=== PATIENT | female | born 1995 | race Caucasian/White ===

== ENCOUNTER 2018-12-10 12:43 | Emergency (ER) | payer OTHER ==
[2018-12-10 13:06] LABS: BILIRUBIN,URINE NEGATIVE (NEGATIVE); CLARITY,URINE CLEAR (CLEAR); GLUCOSE, URINE (UA) NEGATIVE (NEGATIVE); KETONES,URINE (UA) NEGATIVE (NEGATIVE); LEUKOCYTE ESTERASE, URINE NEGATIVE (NEGATIVE); NITRITE,URINE NEGATIVE (NEGATIVE); OCCULT BLOOD,URINE TRACE-INTA (NEGATIVE); PH,URINE 6.5 PH (5.0-7.5); PROTEIN,URINE NEGATIVE (NEGATIVE); UROBILINOGEN,URINE 0.2 (NORMAL) E.U./dL (NORMAL)
[2018-12-10] MEDS ORDERED: LIDOCAINE VISCOUS 2% 15 ML UDC MM STA (13:28)
[2018-12-10] MEDS ORDERED: ONDANSETRON 4 MG/2 ML VIAL IVP STA (13:28)
[2018-12-10] MEDS ORDERED: MAG HYDROX/AL HYDROX/SIMETH 30 ML UDC PO STA (13:28)
[2018-12-10] MEDS ORDERED: SODIUM CHLORIDE 0.9% 1,000 ML IV ONE (13:28)
--- NOTE | 2018-12-10 13:30 | ED Physician Documentation ---
PD HPI ABD PAIN - Stated complaint Stated Complaint: N/U - Chief complaint Chief Complaint: Abd Pain - History obtained from History obtained from: Patient - History of Present Illness Timing - onset: Other (G1, P0 at 16 weeks presents with 4 days of left flank pain radiating to the left lower quadrant. She is had nausea and vomiting as well as poor p.o. intake but normal bowel movements. She started feel weak and dizzy because of it. She is had no problems with this so far. No bleeding, no fluid loss, no pelvic cramping.) Review of Systems Ten Systems: 10 systems reviewed and negative Constitutional: reports: Fatigue. denies: Fever, Chills Cardiac: denies: Chest pain / pressure, Palpitations Respiratory: denies: Dyspnea, Cough : denies: Dysuria, Frequency, Vaginal bleeding PD PAST MEDICAL HISTORY - Past Medical History Past Medical History: No - Present Medications Home Medications: Ambulatory Orders Medication Instructions Recorded Confirmed Ondansetron Odt [Zofran] 4 mg TL Q6H PRN #10 tablet 12/10/18 raNITIdine [Zantac] 150 mg PO DAILY #30 tablet 12/10/18 - Allergies Allergies/Adverse Reactions: Allergies Allergy/AdvReac Type Severity Reaction Status Date / Time No Known Drug Allergies Allergy Verified 12/10/18 12:49 - Social History Does the pt smoke?: No Smoking Status: Never smoker PD ED PE NORMAL - Vitals Vital signs reviewed: Yes - General General: Alert and oriented X 3, No acute distress - Neck Neck: Supple, no meningeal sign, No bony TTP - Cardiac Cardiac: RRR, No murmur - Respiratory Respiratory: No respiratory distress, Clear bilaterally - Abdomen Abdomen: Normal bowel sounds, Soft, Non tender - Female Female : Other (Bedside ultrasound demonstrates single live intrauterine with a heart rate of 154.) - Back Back: No spinal TTP - Neuro Neuro: Alert and oriented X 3, Normal speech Results - Vitals Vitals: Vital Signs - 24 hr 12/10/18 12/10/18 12:47 14:30 Temperature 36.5 C 36.6 C Heart Rate 70 66 Respiratory 16 16 Rate Blood Pressure 119/61 116/69 O2 Saturation 100 100 Oxygen O2 Source Room air - Labs Labs: Laboratory Tests 12/10/18 12/10/18 12/10/18 12:57 13:39 13:39 WBC 12.9 H RBC 3.63 L Hgb 11.9 L Hct 33.8 L MCV 93.1 MCH 32.8 H MCHC 35.2 RDW 12.2 Plt Count 206 MPV 10.1 Neut # (Auto) 10.1 H Lymph # (Auto) 1.8 [place] # (Auto) 0.9 Eos # (Auto) 0.0 Baso # (Auto) 0.0 Absolute Nucleated RBC 0.00 Nucleated RBC % 0.0 Sodium 135 Potassium 3.6 Chloride 105 Carbon Dioxide 20 L Anion Gap 10.0 BUN 12 Creatinine 0.5 Estimated GFR (MDRD) 154 Glucose 83 Calcium 9.5 Total Bilirubin 0.4 AST 17 ALT 13 Alkaline Phosphatase 42 Total Protein 7.5 Albumin 4.2 Globulin 3.3 Albumin/Globulin Ratio 1.3 Lipase 27 Urine Color YELLOW Urine Clarity CLEAR Urine pH 6.5 Ur Specific [place] 1.010 Urine Protein NEGATIVE Urine Glucose (UA) NEGATIVE Urine Ketones NEGATIVE Urine Occult Blood TRACE-INTA Urine Nitrite NEGATIVE Urine Bilirubin NEGATIVE Urine Urobilinogen 0.2 (NORMAL) Ur Leukocyte Esterase NEGATIVE Ur Microscopic Review NOT INDICATED Urine Culture Comments NOT INDICATED PD MEDICAL DECISION MAKING - ED course ED course: 23-year-old woman presents with abdominal pain in the setting of . There is nothing to suggest appendicitis or other surgical emergency. She was feeling better after a GI cocktail, IV fluids and Zofran. Remains nontender on reevaluation. Departure - Departure Disposition: 01 Home, Self Care Clinical Impression: Gastritis, Condition: Good Record reviewed to determine appropriate education?: Yes Instructions: ED Gastritis Prescriptions: Ondansetron Odt [Zofran] 4 mg TL Q6H PRN #10 tablet PRN Reason: Nausea / Vomiting raNITIdine [Zantac] 150 mg PO DAILY #30 tablet Comments: You were seen today for abdominal pain in the setting of , your labs look okay and you were feeling better after a GI cocktail and Zofran. Continue a light diet for the next couple of days. Return for new worsening symptoms, especially for fever or severe pain. [place]. Forms: Activity restrictions
[2018-12-10 13:45] LABS: BASOPHILS % (AUTO) 0.2 %; EOSINOPHILS % (AUTO) 0.3 %; HGB - HEMOGLOBIN 11.9 g/dL (12.0-16.0); LYMPHOCYTES # (AUTO) 1.8 10^3/uL (1.5-3.5); LYMPHOCYTES % (AUTO) 13.7 %; MEAN CORPUSCULAR HEMOGLOBIN 32.8 pg (27.0-31.0); MEAN CORPUSCULAR HGB CONC 35.2 g/dL (32.0-36.0); MEAN CORPUSCULAR VOLUME 93.1 fL (81.0-99.0); MEAN PLATELET VOLUME 10.1 fL (7.9-10.8); MONOCYTES # (AUTO) 0.9 10^3/uL (0.0-1.0); MONOCYTES % (AUTO) 6.8 %; NEUTROPHILS # (AUTO) 10.1 10^3/uL (1.5-6.6); NEUTROPHILS % (AUTO) 78.5 %; PLT - PLATELET COUNT 206 10^3/uL (130-450); RED BLOOD COUNT 3.63 10^6/uL (4.20-5.40); RED CELL DISTRIBUTION WIDTH 12.2 % (12.0-15.0); WHITE BLOOD COUNT 12.9 x10^3/uL (4.8-10.8)
[2018-12-10 14:09] LABS: ALBUMIN 4.2 g/dL (3.2-5.5); ALBUMIN/GLOBULIN RATIO 1.3 (1.0-2.2); BILIRUBIN,TOTAL 0.4 mg/dL (0.2-1.0); CALCIUM 9.5 mg/dL (8.5-10.3); CREATININE 0.5 mg/dL (0.4-1.0); TOTAL PROTEIN 7.5 g/dL (6.7-8.2)
[2018-12-10 14:31] VITALS: BP 116/69
== END 2018-12-10 14:53 | disposition home or self-care (01) ==
LOC: ED 12:43
DX: O99.612 Diseases of the digestive system complicating pregnancy, second trimester (principal); K29.70 Gastritis, unspecified, without bleeding; Z3A.16 16 weeks gestation of pregnancy
CPT/HCPCS: 36415; 80053; 81003; 83690; 85025; 96374; 99283; A9270; 81001; 87086

== ENCOUNTER 2019-02-28 12:42 | Outpatient (CLI) | payer OTHER ==
[2019-02-28 18:51] LABS: HGB - HEMOGLOBIN 11.3 g/dL (12.0-16.0); MEAN CORPUSCULAR HEMOGLOBIN 32.5 pg (27.0-31.0); MEAN CORPUSCULAR HGB CONC 32.7 g/dL (32.0-36.0); MEAN CORPUSCULAR VOLUME 99.4 fL (81.0-99.0); MEAN PLATELET VOLUME 9.9 fL (7.9-10.8); RED BLOOD COUNT 3.48 10^6/uL (4.20-5.40); RED CELL DISTRIBUTION WIDTH 13.1 % (12.0-15.0); WHITE BLOOD COUNT 13.8 x10^3/uL (4.8-10.8)
== END 2019-02-28 23:59 | disposition home or self-care (01) ==
LOC: LAB.N 12:42
PROVIDERS: ATTEND Nurse Practitioner Obstetrics & Gynecology
DX: Z36.89 Encounter for other specified antenatal screening (principal)
CPT/HCPCS: 36415; 82950; 85027; 86850

== ENCOUNTER 2019-04-01 06:41 | Outpatient (CLI) | payer OTHER ==
--- NOTE | 2019-04-01 12:26 | Ultrasound Report ---
Reason: ABD PAIN RUQ, SUPERVISION OF Procedure Date: 04/01/2019 Accession Number: [id number] / [id number] Procedure: US - Abdomen Complete CPT Code: Final Report FULL RESULT: EXAM: ABDOMEN ULTRASOUND EXAM DATE: 04/01/2019 06:51 AM. CLINICAL HISTORY: Abdominal pain right upper quadrant, supervision of . COMPARISON: None. TECHNIQUE: Real-time scanning was performed with static images obtained. FINDINGS: Liver: Liver parenchyma is heterogeneous and mildly hyperechoic. No discrete liver masses or intrahepatic bile duct dilation. However, evaluation for masses is limited secondary to the echogenicity. Right liver measures 15.3 cm. Main portal vein flow: Hepatopetal. Gallbladder: Normal. No stones, wall thickening, or sonographic Amador's sign. Biliary System: Common bile duct measures 1.9 mm. No intrahepatic or extrahepatic ductal dilatation. Pancreas: Portions of the distal body and pancreatic tail are not seen due to bowel gas. Remaining pancreas is otherwise unremarkable. No obvious mass or ductal dilation. Kidneys: Right: 12.4 cm longitudinally. Normal. No contour-deforming mass, stones, or hydronephrosis. Left: 12.2 cm longitudinally. Normal. No contour-deforming mass, stones, or hydronephrosis. Spleen: Length measures 11.2 cm. Normal in size and echotexture. Aorta and Inferior Vena Cava: Normal proximal and distal aorta. Mid aorta is obscured by bowel gas. Normal IVC. Other: Single intrauterine with a heart rate of 136 bpm noted. IMPRESSION: 1. Study limited by bowel gas. 2. Single intrauterine with a heartbeat of 136 bpm is noted. 3. Mildly echogenic probably fatty liver. No mass or intrahepatic bile duct dilation. 4. Normal gallbladder and common bile duct. RADIA
== END 2019-04-01 06:42 | disposition home or self-care (01) ==
LOC: DI 06:41
PROVIDERS: ATTEND Obstetrics & Gynecology
DX: O99.89 Other specified diseases and conditions complicating pregnancy, childbirth and the puerperium (principal); R10.11 Right upper quadrant pain
CPT/HCPCS: 76700

== ENCOUNTER 2019-04-30 08:00 | Outpatient (CLI) | payer OTHER ==
[2019-05-01 21:27] LABS: TRICHOMONAS VAGINALIS DNA NEGATIVE (NEGATIVE)
== END 2019-04-30 23:59 | disposition home or self-care (01) ==
LOC: LAB.R 08:00
PROVIDERS: ATTEND Nurse Practitioner Obstetrics & Gynecology
DX: Z36.85 Encounter for antenatal screening for Streptococcus B (principal)
CPT/HCPCS: 87491; 87591; 87661; 87797

== ENCOUNTER 2019-05-07 08:00 | Outpatient (CLI) | payer OTHER | END 2019-05-07 23:59 | disposition home or self-care (01) | LOC: LAB.R 08:00 | PROVIDERS: ATTEND Nurse Practitioner Obstetrics & Gynecology | DX: R35.0 Frequency of micturition (principal) | CPT/HCPCS: 87086 ==

== ENCOUNTER 2019-05-07 16:14 | Outpatient (CLI) | payer OTHER ==
[2019-05-07 16:33] LABS: HGB - HEMOGLOBIN 12.8 g/dL (12.0-16.0); MEAN CORPUSCULAR HEMOGLOBIN 33.2 pg (27.0-31.0); MEAN CORPUSCULAR HGB CONC 34.8 g/dL (32.0-36.0); MEAN CORPUSCULAR VOLUME 95.3 fL (81.0-99.0); MEAN PLATELET VOLUME 11.2 fL (7.9-10.8); RED BLOOD COUNT 3.86 10^6/uL (4.20-5.40); RED CELL DISTRIBUTION WIDTH 12.1 % (12.0-15.0); WHITE BLOOD COUNT 13.2 x10^3/uL (4.8-10.8)
[2019-05-07 16:49] LABS: ALBUMIN 3.2 g/dL (3.2-5.5); ALBUMIN/GLOBULIN RATIO 0.9 (1.0-2.2); ALKALINE PHOSPHATASE 97 IU/L (42-121); ALT ALANINE AMINOTRANSFERASE < 10 IU/L (10-60); AST ASPARTATE AMINOTRANSFERASE 15 IU/L (10-42); BILIRUBIN,TOTAL 0.5 mg/dL (0.2-1.0); BUN - BLOOD UREA NITROGEN 11 mg/dL (6-20); CALCIUM 8.9 mg/dL (8.5-10.3); CARBON DIOXIDE - CO2 20 mmol/L (21-32); CHLORIDE 107 mmol/L (101-111); CREATININE 0.6 mg/dL (0.4-1.0); GFR - MDRD 125 (>89); GLUCOSE 90 mg/dL (70-100); SODIUM 137 mmol/L (135-145); TOTAL PROTEIN 6.6 g/dL (6.7-8.2); URIC ACID 4.6 mg/dL (2.6-7.2)
== END 2019-05-07 16:15 | disposition home or self-care (01) ==
LOC: LAB 16:14
PROVIDERS: ATTEND Nurse Practitioner Obstetrics & Gynecology
DX: R03.0 Elevated blood-pressure reading, without diagnosis of hypertension (principal)
CPT/HCPCS: 36415; 80053; 84550; 85027

== ENCOUNTER 2019-05-09 07:00 | Outpatient (CLI) | payer OTHER ==
[2019-05-09 11:11] LABS: CREATININE,URINE 107.7 mg/dL
== END 2019-05-09 23:59 | disposition home or self-care (01) ==
LOC: LAB.R 07:00
PROVIDERS: ATTEND Nurse Practitioner Obstetrics & Gynecology
DX: R03.0 Elevated blood-pressure reading, without diagnosis of hypertension (principal)
CPT/HCPCS: 82570; 84156

== ENCOUNTER 2019-05-09 10:00 | Outpatient (CLI) | payer OTHER ==
[2019-05-09 10:24] VITALS: BP 136/88
[2019-05-09 11:09] LABS: RAPID STREP SCREEN Negative (Negative)
--- NOTE | 2019-05-09 12:27 | PROCEDURE REPORT ---
- HPI Diagnosis/Indication for NST: Gestational Hypertension Current EDU 05/24/19 Gestation 37 Weeks and 6 Days 1 Para 0 Vital Signs Temperature 37.2 C 05/09/19 10:23 Heart Rate 85 05/09/19 10:23 Respiratory Rate 18 05/09/19 10:23 Blood Pressure 136/88 H 05/09/19 10:23 O2 Saturation 100 05/09/19 10:23 Temperature 37.2 C 05/09/19 10:23 Heart Rate 85 05/09/19 10:23 Respiratory Rate 18 05/09/19 10:23 Blood Pressure 136/88 H 05/09/19 10:23 O2 Saturation 100 05/09/19 10:23 - NST Procedure NST Procedure Start Date 05/09/19 Start Time 10:10 Stop Time 11:10 Vibroacoustic Stimulation Used No Patient States Movement Yes - Results and Plan Plan: Henri presents to [facility] as directed from [facility] for NST secondary to diagnosis of gestational HTN. Her labs were WNL and r/o preeclampsia. She denies [place], visual disturbances, RUQ or epigastric pain. She denies vaginal bleeding or leakage of fluid. Denies contractions. Reports +FM. In addition she reports new onset cough and feeling like she is swallowing razor blades. She denies fever, body aches, or chills. NST performed 05/09/2019 NST read 05/09/2019 NST reactive. Baseline 140s, moderate variability, + accels, no decels Rapid strep - neg Rapid flu - neg PIH labs WNL and r/o preeclampsia Medical IOL secondary to gestational HTN scheduled 05/10/2019 @ 0800. Consent form signed and [facility] notified. Reviewed warning s/sx and when to present urgently with pt whom verbalized understanding and agrees to above plan. Pt released home with precautions. FINAL DIAGNOSIS: Gestational hypertension @ 37.6wks gestation
== END 2019-05-09 11:20 | disposition home or self-care (01) ==
LOC: WFO 10:00 → FBP 10:04 → WFO 11:20
PROVIDERS: ATTEND Nurse Practitioner Obstetrics & Gynecology
DX: O13.3 Gestational [pregnancy-induced] hypertension without significant proteinuria, third trimester (principal); Z3A.37 37 weeks gestation of pregnancy
CPT/HCPCS: 59025; 87070; 87275; 87276; 87430

== ENCOUNTER 2019-05-10 07:51 | Outpatient (CLI) | payer OTHER ==
[2019-05-10 08:31] VITALS: BP 138/90
--- NOTE | 2019-05-10 08:42 | Labor Flowsheet ---
Labor Flowsheet Datetime Report Generated by CPN: 05/10/2019 08:42 Datetime: 05/10/2019 08:14 VITAL SIGNS NBP Sys/Ariadna/Mean (mmHg): 124 : 65 : 78 Pulse: 88 Datetime: 05/09/2019 10:23 SpO2 (%): 100
--- NOTE | 2019-05-10 09:11 | PROCEDURE REPORT ---
- HPI Diagnosis/Indication for NST: Gestational Hypertension Current EDU 05/24/19 Gestation 38 Weeks and 0 Days 1 Para 0 Vital Signs Blood Pressure 138/90 H 05/10/19 08:00 Temperature 36.8 C 05/10/19 08:15 Heart Rate 88 05/10/19 08:15 Respiratory Rate 18 05/10/19 08:15 Blood Pressure 124/65 05/10/19 08:15 O2 Saturation - NST Procedure NST Procedure Start Date 05/10/19 Start Time 07:58 Stop Time 08:17 Vibroacoustic Stimulation Used No Patient States Movement Yes - Results and Plan Findings/Impression: NST reactive. Baseline 140s, moderate variability, + accels, no decels Plan: Henri presents to [facility] for scheduled medical induction of labor secondary to gestational hypertension. Due to unit staffing concerns her induction will be delayed pending a reactive NST and no signs of progressively worsening gestational hypertension. She denies vaginal bleeding or leakage of fluid and reports +FM. She denies headache, visual disturbances, RUQ or epigastric pain. Her edema has remained consistent to LE's bilterally. She presents with her whom is supportive. They are slightly disappointed about having to go home and return tomorrow morning for induction but also express their understanding. NST performed 05/10/2019 NST read 05/10/2019 NST reactive. Baseline 140s, moderate variability, + accels, no decels BP 134/92 and then 126/64 Pt released home with precautions. Will call when there is adequate staff available. Reviewed warning s/sx and when to present urgently. Pt and partner both verbalized understanding and agree to above plan. They deny further questions or concerns at this time.
== END 2019-05-10 08:40 | disposition home or self-care (01) ==
LOC: WFO 07:51 → FBP 07:53 → WFO 08:40
PROVIDERS: ATTEND Nurse Practitioner Obstetrics & Gynecology
DX: Z53.9 Procedure and treatment not carried out, unspecified reason (principal)
CPT/HCPCS: 59025; 99213

== ENCOUNTER 2019-05-11 13:54 | Inpatient (IN) | payer OTHER ==
[2019-05-11] MEDS ORDERED: METHYLERGONOVINE 0.2 MG/ML VIAL IM PRN (14:01)
[2019-05-11] MEDS ORDERED: OXYTOCIN/SODIUM CHLORIDE 500 ML IV PRN (14:01)
[2019-05-11] MEDS ORDERED: ONDANSETRON ODT 4 MG TABLET TL PRN (14:01)
[2019-05-11] MEDS ORDERED: CARBOPROST TROMETHAMINE 250 MCG/ML AMP IM PRN (14:01)
[2019-05-11] MEDS ORDERED: SODIUM CHLORIDE FLUSH 0.9% 10 ML SYRINGE IVP PRN (14:01)
[2019-05-11] MEDS ORDERED: miSOPROStoL 200 MCG TABLET PR ONE (14:01)
[2019-05-11] MEDS ORDERED: ONDANSETRON 4 MG/2 ML VIAL IVP PRN (14:01)
[2019-05-11] MEDS ORDERED: miSOPROStoL 200 MCG TABLET PR PRN (14:01)
[2019-05-11 14:34] LABS: ALBUMIN 3.6 g/dL (3.2-5.5); ALBUMIN/GLOBULIN RATIO 1.1 (1.0-2.2); BASOPHILS % (AUTO) 0.3 %; BILIRUBIN,TOTAL 0.7 mg/dL (0.2-1.0); CALCIUM 9.1 mg/dL (8.5-10.3); CREATININE 0.7 mg/dL (0.4-1.0); EOSINOPHILS # (AUTO) 0.1 10^3/uL (0.0-0.7); EOSINOPHILS % (AUTO) 0.8 %; HGB - HEMOGLOBIN 12.8 g/dL (12.0-16.0); LYMPHOCYTES # (AUTO) 2.1 10^3/uL (1.5-3.5); LYMPHOCYTES % (AUTO) 14.3 %; MEAN CORPUSCULAR HEMOGLOBIN 31.5 pg (27.0-31.0); MEAN CORPUSCULAR HGB CONC 33.2 g/dL (32.0-36.0); MEAN CORPUSCULAR VOLUME 95.1 fL (81.0-99.0); MEAN PLATELET VOLUME 11.5 fL (7.9-10.8); MONOCYTES # (AUTO) 1.1 10^3/uL (0.0-1.0); MONOCYTES % (AUTO) 7.6 %; NEUTROPHILS # (AUTO) 11.3 10^3/uL (1.5-6.6); NEUTROPHILS % (AUTO) 75.7 %; PLT - PLATELET COUNT 224 10^3/uL (130-450); RED BLOOD COUNT 4.06 10^6/uL (4.20-5.40); TOTAL PROTEIN 6.9 g/dL (6.7-8.2); WHITE BLOOD COUNT 14.9 x10^3/uL (4.8-10.8)
[2019-05-11] MEDS ORDERED: TERBUTALINE 1 MG/ML VIAL SUBQ SCH (15:00)
[2019-05-11] MEDS: miSOPROStoL 100 MCG TABLET BC SCH ×2 (15:04→20:15)
[2019-05-11 15:54] LABS: CREATININE,URINE 141.8 mg/dL; PROTEIN/CREATININE RATIO,URINE 0.2 (<=0.2)
[2019-05-11] MEDS ORDERED: SODIUM CHLORIDE FLUSH 0.9% 10 ML SYRINGE IVP SCH (17:00)
--- NOTE | 2019-05-11 19:13 | HISTORY & PHYSICAL EXAMINATION ---
Admit History - Visit Reason Visit Reason: Other - : 1 Parity: 0 Premature: 0 Ectopic: 0 : 0 Care: positive: [facility] Risk/History: positive: None Complications This : positive: None Smoking Status: Never smoker - Mother's Labs Mother's Blood Type: positive: O Mother's RH: positive: Positive GBS: positive: Group B Step Negative Rubella Status: positive: Immune Meds/Allgy - Home Medications Home Medications: Ambulatory Orders Medication Instructions Recorded Confirmed Ondansetron Odt [Zofran] 4 mg TL Q6H PRN #10 tablet 12/10/18 raNITIdine [Zantac] 150 mg PO DAILY #30 tablet 12/10/18 - Allergies Allergies/Adverse Reactions: Allergies Allergy/AdvReac Type Severity Reaction Status Date / Time No Known Drug Allergies Allergy Verified 12/10/18 12:49 Review of Systems - Constitutional Constitutional: denies: Fatigue, Fever, Chills, Malaise - Eyes Eyes: denies: Blurred vision, Spots in vision, Dipolpia - Cardiovascular Cariovascular: denies: Irregular heart rate, Chest pain, Edema - Respiratory Respiratory: denies: SOB at rest - Gastrointestinal Gastrointestinal: denies: Change in bowel habits - Integumentary Integumentary: denies: Rash, Pruritis - Neurological Neurological: denies: Headache Physical - Abdominal Exam Vital Signs: Temp Pulse Resp BP Pulse Ox 36.8 C 83 18 126/64 100 05/11/19 17:00 05/11/19 17:00 05/11/19 17:00 05/11/19 17:00 05/11/19 17:00 Contraction Frequency (min/apart): 2-5 Contraction Intensity: positive: Moderate Uterine Resting Tone: positive: Soft - Monitoring Heart Rate Baseline: 150 Strip Review: positive: Category I - Presentation Presentation: positive: Vertex - Vaginal Exam Membranes: positive: Membranes intact Dilation (in cm): fingertip Effacement (%): 50 Station: positive: -3 Cervical Position: positive: Posterior - Speculum Exam Speculum Exam Performed: positive: No Plan for Labor - Plan For Labor I expect patient to be DC'd or transferred within 96 hours.: Yes Plan for Labor: HPI: This 23yo @ 38.1wks gestation by LMP c/w 10.3wk U/S presents to [facility] for medical induction of labor secondary to gestational hypertension. She denies vaginal bleeding or leakage of fluid and reports +FM. She denies [place], visual disturbances, RUQ or epigastric pain. Her edema to LE's bilaterally has remained consistent over the past 2 weeks. She has been a patient of [facility] since 23wks gestation at which time she was a transfer of care from [facility]. She has received consistent care through the duration of her . Her has remained uncomplicated with the exception of her recent diagnosis of gestational hypertension. Her BPs have remained only mildly elevated and she has never had associated symptoms to suggest preeclampsia. Her PIH labs have remained WNL and her 24hr protein was WNL. SVE fingertip/50/-3, posterior, medium, vertex. She will be placed on observation status on [facility] for preinduction cervical ripening. Dating criteria: LMP 08/17/2018 Initial U/S: 10.3wk U/S c/w LMP dating Serial exams - agree OB Hx: G1: Current Medications: Sertraline 50mg; ranitidine 150mg; PNV; zofran PRN Allergies: NKDA PMHx: Surgical Hx: Social Hx: Family Hx: labs: O pos/Rubella immune Gentic testing: Serum integrated screen - neg; SMA neg; CF neg Glucola 98 GBS & GC/CT- NEG x 3 Ultrasounds: Initial U/S: 10.3wk U/S c/w LMP dating. FAS 01/03/2019 WNL, 3VC. Antterior placenta, no previa. Size c/w dating - cord insertion site not well seen. 01/07/19 f/u for cord insertion - 3VC, normal, anterior cord insertion; VIVEK WNL Immunizations: TDAP complete Physical Exam: Normocephalic, atraumatic Heart RRR w/o M/G/R Lungs CTAB Abdomen gravid, soft, nontender EFW 3000g Contractions palpate moderate every 2-5 minutes with soft resting tone FHR baseline 150s, moderate variability, + accels, no decels SVE fingertip/50/-3, posterior, medium, vertex. Membranes intact Bilateral LE's no edema. DTRs 2+, no clonus Mood is good supportive at the bedside Admit labs: Protein/creatinine ratio 0.2 AST-32; ALT-32 Uric acid 4.6 Assessment: 23yo @ 38.1wks gestation Gestational HTN - mild GBS neg Plan: Place in observation status until active labor, SROM, epidural placement, or initiation of pitocin Continuous monitoring 50mcg BC misoprostol q 4 hours for preinduction cervical ripening Jacuzzi PRN. Nitrous oxide PRN. Anticipate
[2019-05-12] MEDS: ACETAMINOPHEN 325 MG TABLET PO PRN ×3 (00:29→21:28)
[2019-05-12] MEDS ORDERED: SODIUM CHLORIDE 0.65% NASAL SPRAY NAS PRN (01:01)
[2019-05-12] MEDS: miSOPROStoL 100 MCG TABLET BC SCH ×2 (03:18→09:38)
--- NOTE | 2019-05-12 13:27 | PROVIDER PROGRESS NOTE ---
Subjective - Prog Note Date Prog Note Date: 05/12/19 Prog Note Time: 11:45 - Subjective Subjective: Patient has had 4 doses of misoprostol; last dose at 9:30 am. Feels contractions when sitting upright. No LOF or VB. Generally comfortable. No PIH symptoms. Objective - Vital Signs/Intake & Output Reviewed Vital Signs: Yes Intake & Output: Intake & Output 05/09/19 05/10/19 05/11/19 05/12/19 23:59 23:59 23:59 23:59 Output Total 1150 Balance -1150 - Objective General Appearance: positive: No acute distress Respiratory: positive: Chest non-tender Cardiovascular: positive: Other (RR) Abdomen: positive: Non-tender, Other (gravid, soft) Extremities: positive: Non-tender, No pedal edema Neurologic/Psychiatric: positive: Oriented x3 - Lab Results Fish Bones: 05/11/19 14:20 05/11/19 14:20 Other Labs: Lab Results x24hrs 05/11/19 05/11/19 05/11/19 Range/Units 15:25 14:20 14:20 WBC 14.9 H (4.8-10.8) x10^3/uL RBC 4.06 L (4.20-5.40) 10^6/uL Hgb 12.8 (12.0-16.0) g/dL Hct 38.6 (37.0-47.0) % MCV 95.1 (81.0-99.0) fL MCH 31.5 H (27.0-31.0) pg MCHC 33.2 (32.0-36.0) g/dL RDW 12.0 (12.0-15.0) % Plt Count 224 (130-450) 10^3/uL MPV 11.5 H (7.9-10.8) fL Neut # (Auto) 11.3 H (1.5-6.6) 10^3/uL Lymph # (Auto) 2.1 (1.5-3.5) 10^3/uL [place] # (Auto) 1.1 H (0.0-1.0) 10^3/uL Eos # (Auto) 0.1 (0.0-0.7) 10^3/uL Baso # (Auto) 0.0 (0.0-0.1) 10^3/uL Absolute Nucleated RBC 0.00 x10^3/uL Nucleated RBC % 0.0 /100WBC Sodium 136 (135-145) mmol/L Potassium 4.8 (3.5-5.0) mmol/L Chloride 100 L (101-111) mmol/L Carbon Dioxide 27 (21-32) mmol/L Anion Gap 9.0 (6-13) BUN 18 (6-20) mg/dL Creatinine 0.7 (0.4-1.0) mg/dL Estimated GFR (MDRD) 105 (>89) Glucose 93 (70-100) mg/dL Calcium 9.1 (8.5-10.3) mg/dL Total Bilirubin 0.7 (0.2-1.0) mg/dL AST 32 (10-42) IU/L ALT 32 (10-60) IU/L Alkaline Phosphatase 63 (42-121) IU/L Total Protein 6.9 (6.7-8.2) g/dL Albumin 3.6 (3.2-5.5) g/dL Globulin 3.3 (2.1-4.2) g/dL Albumin/Globulin Ratio 1.1 (1.0-2.2) Urine Creatinine 141.8 mg/dL Ur Total Protein Timed 23 mg/dL Protein/Creatinin Ratio 0.2 (<=0.2) Assessment/Plan - Problem List (1) Impression: 23 yo at 38w2d here for IOL for GHTN undergoing cervical ripening with misoprostol -Check SVE after next dose -Consider Morin bulb placement Cat I tracing No severe range BPs or PIH symptoms, labs wnl Cont inpatient care Anticipate SVE
[2019-05-12] MEDS: LACTATED RINGERS 1,000 ML IV SCH ×2 (14:38→16:57)
--- NOTE | 2019-05-12 18:36 | PROVIDER PROGRESS NOTE ---
Labor Progress Note - Uterine Monitoring Contraction Frequency (min/apart): Q3-6; irreg Contraction Intensity: positive: Mild to moderate Uterine Resting Tone: positive: Soft - Monitoring Monitor Mode: positive: External ultrasound Heart Rate Baseline: 145 Heart Rate Variability: positive: Moderate (6-25 bmp) Accelerations: positive: Present, 15x15 Decelerations: positive: None Strip Review: positive: Category I - Labor Progress Note Labor Progress Note/Additional Text: At about 16:30, patient had been fingertip with a category II At about 16:30, underwent SROM Unclear clear vs light meconium Runs of active contractions interspersed with runs of spaced contractions Given period of Cat II tracing after miso, will manage expectantly to allow contraction pattern to emerge If continues to have spaced contractions, will start low dose pitocin Current Cat I tracing
[2019-05-12] MEDS: fentaNYL 100 MCG/2 ML VIAL IVP PRN ×2 (21:56→23:55)
[2019-05-12] MEDS ORDERED: OXYTOCIN/SODIUM CHLORIDE 500 ML IV SCH (22:00)
[2019-05-13] MEDS ORDERED: LIDOCAINE-MPF 1% 30 ML VIAL ONE ×2 (01:02→08:16)
[2019-05-13] MEDS ORDERED: ROPIVACAINE 0.2% 200 MG/100 ML BAG EP ONE (01:02)
[2019-05-13] MEDS: fentaNYL 100 MCG/2 ML VIAL IVP PRN (01:11)
[2019-05-13] MEDS: LACTATED RINGERS 1,000 ML IV SCH (01:25)
[2019-05-13] MEDS ORDERED: LACTATED RINGERS 1,000 ML IV ONE (01:28)
[2019-05-13] MEDS ORDERED: NALOXONE 0.4 MG/ML VIAL IVP PRN (01:50)
[2019-05-13] MEDS ORDERED: ONDANSETRON 4 MG/2 ML VIAL IVP PRN (01:50)
[2019-05-13] MEDS ORDERED: ROPIVACAINE 0.2% 200 MG/100 ML BAG EP PRN (01:50)
[2019-05-13] MEDS ORDERED: diphenhydrAMINE INJ 50 MG/ML VIAL IVP PRN (01:50)
[2019-05-13] MEDS ORDERED: NALBUPHINE 10 MG/ML AMP IVP PRN (01:50)
[2019-05-13] MEDS ORDERED: METOCLOPRAMIDE 10 MG/2 ML VIAL IVP PRN (01:50)
[2019-05-13] MEDS ORDERED: LACTATED RINGERS 500 ML IV ONE (01:50)
[2019-05-13] MEDS ORDERED: ePHEDrine 50 MG/ML VIAL IVP PRN (01:50)
--- NOTE | 2019-05-13 01:50 | ANESTHESIA ---
Pre-Anesthesia VS, & Labs - Diagnosis active labor - Procedure SRINIVASA Vital Signs: Temp Pulse Resp BP Pulse Ox 36.7 C 83 18 126/64 100 05/12/19 21:00 05/11/19 17:00 05/11/19 17:00 05/11/19 17:00 05/11/19 17:00 Height 5 ft 3 in Weight (kg) 90.718 kg Body Mass Index 27.6 - Is Patient ?: Yes - Lab Results Current Lab Results: Laboratory Tests 05/11/19 14:20: Sodium 136, Potassium 4.8, Chloride 100 L, Carbon Dioxide 27, Anion Gap 9.0, BUN 18, Creatinine 0.7, Estimated GFR (MDRD) 105, Glucose 93, Calcium 9.1, Total Bilirubin 0.7, AST 32, ALT 32, Alkaline Phosphatase 63, Total Protein 6.9, Albumin 3.6, Globulin 3.3, Albumin/Globulin Ratio 1.1 05/11/19 14:20: WBC 14.9 H, RBC 4.06 L, Hgb 12.8, Hct 38.6, MCV 95.1, MCH 31.5 H , MCHC 33.2, RDW 12.0, Plt Count 224, MPV 11.5 H, Neut # (Auto) 11.3 H, Lymph # (Auto) 2.1, [place] # (Auto) 1.1 H, Eos # (Auto) 0.1, Baso # (Auto) 0.0, Absolute Nucleated RBC 0.00, Nucleated RBC % 0.0 Fish Bones: 05/11/19 14:20 05/11/19 14:20 Home Medications and Allergies Active Medications Acetaminophen (Tylenol) 650 mg PO Q6H PRN PRN Reason: Pain or Fever Last Admin: 05/12/19 21:28 Dose: 650 mg Fentanyl (Fentanyl) 50 mcg IVP Q1H PRN PRN Reason: PAIN Last Admin: 05/13/19 01:11 Dose: 50 mcg Lactated Ringer's (Lr) 1,000 mls @ 100 mls/hr IV .Q10H IGNACIO Last Admin: 05/13/19 01:25 Dose: 100 mls/hr Oxytocin/Sodium Chloride (Pitocin/Sodium Chloride) 500 mls @ 999 mls/hr IV PRN PRN; Protocol PRN Reason: POST- HEMORR PREVENTION Oxytocin/Sodium Chloride (Pitocin/Sodium Chloride) 500 mls @ 1 mls/hr IV TITR IGNACIO; Protocol Last Titration: 05/12/19 22:27 Dose: 2 milliunit/min, 2 mls/hr Methylergonovine Maleate (Methergine Inj) 0.2 mg IM Q4H PRN PRN Reason: Post- Hemorrhage Misoprostol (Cytotec) 50 mcg BC Q4HR IGNACIO Last Admin: 05/12/19 09:38 Dose: 50 mcg Ondansetron HCl (Zofran Inj) 4 mg IVP Q4HR PRN PRN Reason: Nausea / Vomiting Ondansetron HCl (Zofran Odt) 4 mg TL Q4HR PRN PRN Reason: Nausea / Vomiting Sodium Chloride (Normal Saline Flush 0.9%) 10 ml IVP 0100,0900,1700 [facility] Last Admin: 05/11/19 20:16 Dose: 10 ml Sodium Chloride (Normal Saline Flush 0.9%) 10 ml IVP PRN PRN PRN Reason: NEEDED PER PROVIDER ORDERS Sodium Chloride ([place]) 2 sprays CHANDA Q4HR PRN PRN Reason: Nasal Congestion Last Admin: 05/12/19 01:18 Dose: 2 sprays Terbutaline Sulfate (Terbutaline) 0.25 mg SUBQ Q1H [facility] Allergies/Adverse Reactions: Allergies Allergy/AdvReac Type Severity Reaction Status Date / Time No Known Drug Allergies Allergy Verified 12/10/18 12:49 Anes History & Medical History - Anesthetic History Anesthesia Complications: reports: No previous complications Family history of Anesthesia Complications: Denies Family history of Malignant Hyperthermia: Denies - Medical History Cardiovascular: reports: None Pulmonary: reports: None Gastrointestinal: reports: None Urinary: reports: None Neuro: reports: None Musculoskeletal: reports: None Endocrine/Autoimmune: reports: None Blood Disorders: reports: None Skin: reports: None Smoking Status: Never smoker Psychosocial: reports: No issues indicated - Obstetrical History : 1 Parity: 0 Events: positive: None Complications: positive: None Exam General: Alert, Oriented x3, Cooperative, No acute distress Dental: WNL Mouth Openin Fingerbreadth Mallampati classification: IV Thyromental Distance: 4-6 cm Respiratory: Lungs clear, Normal breath sounds, No respiratory distress, No accessory muscle use Cardiovascular: Regular rate, Normal S1, Normal S2, No murmurs Abdomen: Normal bowel sounds, Soft, No tenderness, No hepatospenomegaly, No masses Extremities: No clubbing, No cyanosis, No edema, Normal pulses, No tenderness /swelling Neurological: Normal gait, Normal speech, Strength at 5/5 X4 ext, Normal tone, Sensation intact, Cranial nerves 3-12 NL, Reflexes 2+ Mental/Cognitive Status: Alert/Oriented X3, Normal for patient Cognitive Status: Within normal limits Plan Anesthesia Type: Epidural Consent for Procedure(s) Verified and Reviewed: Yes Code Status: Attempt Resuscitation ASA classification: 2-Mild systemic disease Is this case an emergency?: No
--- NOTE | 2019-05-13 02:04 | PROCEDURE REPORT ---
Hospitalist Procedure Note - Procedure Note Procedure Note: epidural requested for the patient. In room at about 0100. Patient is teary and is having contraction pains. Informed consent obtained and risks and benefits of the procedure explained to the patient. Made her aware of the Importance of positioning and not moving during the procedure. Sitting position and she continues to move with each contraction. RN administered IV fentanyl 50mcg upon my request. This helped patient a little bit with her contractions and then I was able to proceed. Chlorohexidine prep x3. sterile drape to her back. Lidocain 1%3ml local before needle insertion. Catheter in at about 13-14 cm. Test dose negative. First bolus of lidocain 1% 5ml at 0135. pump started at about 0143. Administered 15mcg of intrathecal fentanyl. Patient tolerated the procedure well
[2019-05-13] MEDS ORDERED: miSOPROStoL 200 MCG TABLET ONE (08:16)
--- NOTE | 2019-05-13 09:00 | PROVIDER PROGRESS NOTE ---
Subjective - Prog Note Date Prog Note Date: 05/13/19 Prog Note Time: 06:00 - Subjective Subjective: Patient was noted to be 8 cm at about 3-4 am. Developed some decels about 2 hours after that. Pitocin had been paused by RN due to decels. Checked about an hour later and was complete. Epidural in place. Meconium stained fluid. Objective - Vital Signs/Intake & Output Vital Signs: Vital Signs x48h Temp Pulse Resp BP 05/13/19 05:00 99 F 85 16 120/62 05/13/19 03:00 74 16 116/56 L 05/13/19 01:50 98.6 F 93 16 152/100 H 05/13/19 01:00 98.6 F 93 16 152/100 H Intake & Output: Intake & Output 05/10/19 05/11/19 05/12/19 05/13/19 23:59 23:59 23:59 23:59 Intake Total 232.767 846.667 Output Total 1150 800 Balance -917.233 46.667 - Objective General Appearance: positive: No acute distress Respiratory: positive: Chest non-tender, No respiratory distress Cardiovascular: positive: Regular rate & rhythm Abdomen: positive: Non-tender Skin: positive: Color nml Extremities: positive: Non-tender Neurologic/Psychiatric: positive: Oriented x3 - Lab Results Fish Bones: 05/11/19 14:20 05/11/19 14:20 - Other Results/Comments Other Results/Comments: SVE C/C/0 station Cat I tracing Assessment/Plan - Problem List (1) Impression: Labored down for 1 hours Reinitiated pitocin position OP, manual rotation attempted Started pushing Will need RT for delivery given meconium Anticiapte
[2019-05-13] MEDS ORDERED: LIDOCAINE-MPF 1% 30 ML VIAL ID PRN (10:09)
[2019-05-13] MEDS ORDERED: WITCH HAZEL/GLYCERIN 1 PAD TOP PRN (10:19)
[2019-05-13] MEDS ORDERED: HYDROCORTISONE 1% CREAM 28 GM TUBE PR PRN (10:19)
[2019-05-13] MEDS ORDERED: OXYTOCIN/SODIUM CHLORIDE 500 ML IV PRN (10:21)
--- NOTE | 2019-05-13 10:25 | PROVIDER PROGRESS NOTE ---
Subjective - Subjective Subjective: Presented to pt bedside after receiving report from electronic parts designer physician. Pt was noted to be c/c/+1 with active pushing effort. Pitocin running at 1mU/mL which was increased to 3mU/mL secondary to few productive contractions. position was noted to be OP. Despite adequate maternal pushing effort and position changes there was only minimal progress in advancing station made, and after 2.5 hours of active pushing effort, electronic parts designer physician was phoned to the bedside to evaluate the patient and determine appropriateness for assisted vaginal delivery vs delivery. FHR maintained Category II pattern throughout the second stage and overall was reassuring. scalloper physician present at 1000. Objective - Vital Signs/Intake & Output Vital Signs: Vital Signs x48h Temp Pulse Resp BP 05/13/19 05:00 37.2 C 85 16 120/62 05/13/19 03:00 74 16 116/56 L Intake & Output: Intake & Output 05/10/19 05/11/19 05/12/19 05/13/19 23:59 23:59 23:59 23:59 Intake Total 232.767 846.667 Output Total 1150 800 Balance -917.233 46.667 - Lab Results Fish Bones: 05/11/19 14:20 05/11/19 14:20
[2019-05-13] MEDS: ACETAMINOPHEN 325 MG TABLET PO PRN ×3 (11:46→23:54)
[2019-05-13] MEDS: IBUPROFEN 800 MG TABLET PO SCH ×3 (11:47→23:53)
--- NOTE | 2019-05-13 18:30 | DELIVERY NOTE ---
Delivery Note - Labor Labor: positive: Induced by oxytocin - Infant Delivery Method Delivery Method: positive: Vacuum assist - Cervical Ripening Method Cervical Ripening Method: positive: Misoprostil, Oxytocin - Presentation Presentation: positive: Vertex, ROP - right occiput posterior - Nuchal Cord Nuchal Cord: positive: None - Anesthetic Anesthetic Type: Anesthetic: positive: Lidocaine - 1% plain Volume: positive: Other (20 ml) - Amniotic Fluid Description Amniotic Fluid Description: positive: Moderate meconium - Vacuum Use Indication for Vacuum Use: positive: Prolonged 2nd stage Type of Vacuum Cup: positive: Cup: Mushroom Type, Cup: Rigid Vacuum Extraction: positive: Successful - Episiotomy Type Episiotomy Type: positive: Midline - Suture Suture Type: positive: Vicryl Suture Size: positive: 3-0 - Delivery Outcome Delivery Outcome: positive: Livebirth - [place]: positive: Placed in direct skin contact with mother, Suctioned, Stimulated, Warmed, [place] used [place] sex: positive: Female : Apgars 7/8 : Weight 7lb 1oz - Cord Cord: positive: 3 vessels - Placenta Placenta: positive: Intact - Estimated Blood Loss Estimated Blood Loss (in cc): 250 - Post Delivery Events Post Delivery Events: positive: No post delivery events - Delivery Comments (Free Text/Narrative) Delivery Comments (Free Text/Narrative): I was called to assist in vaginal delivery on patient Henri Kraus. Patient is induced for gestational hypertension. She spontaneously ruptured on 05/12 at 1623. With labor she reached complete at 0537 she started pushing at 0632. She pushed hard with good effort. Cydney Hoover was Her nurse online advertising manager. After roughly 3 hours of pushing I was called to evaluate and assist in the delivery. I arrived at 0942 at which time a repeat a pelvic examination checking for evidence of adequate room. The head was notably +2 with a 1 cm At. It felt as though there is avid adequate room for the infant and was known to be occiput posterior. I explained the alternatives to the patient to include continued pushing, section, and vacuum delivery. At this point the patient with consent of her agreed to vacuum delivery. Vacuum was placed at 1001 we pulled through 3 contractions. During this time the vacuum was allowed to relax to 100 and then with contractions was brought up to between 450 and 700. Care was taken to pull in the axis of the canal. With the last contraction there was a tight band in the posterior vagina was noted an episiotomy was cut to include this area and then the head delivered without difficulty. The remainder of the correction the head rotated from right occiput posterior to right occiput anterior and the remainder of the delivered without evidence of any shoulder dystocia. This occurred at 1011. The was vigorous at time of delivery and was placed on the maternal abdomen. Cord was allowed to cease pulsating prior to clamping and then divided by the . Her placenta followed at 1016 was inspected and noted to be intact with a marginal insertion of the cord. She suffered a second-degree episiotomy episiotomy this was repaired in layers with 3-0 Vicryl. There was no evidence of any further bleeding the sponge and needle counts were correct. Infant weighed 7 pounds 1 ounce and Apgars of 8 and 7 scrap burner was in attendance of the delivery.
[2019-05-13] MEDS ORDERED: LIDOCAINE VISCOUS 2% 15 ML UDC MM PRN (19:22)
[2019-05-13] MEDS: DOCUSATE SODIUM 100 MG CAPSULE PO SCH (22:46)
[2019-05-14] MEDS: IBUPROFEN 800 MG TABLET PO SCH ×3 (05:57→18:45)
[2019-05-14] MEDS: ACETAMINOPHEN 325 MG TABLET PO PRN ×3 (05:57→18:44)
[2019-05-14] MEDS: DOCUSATE SODIUM 100 MG CAPSULE PO SCH (11:55)
--- NOTE | 2019-05-14 18:36 | PROVIDER PROGRESS NOTE ---
Subjective - Prog Note Date Prog Note Date: 05/14/19 Prog Note Time: 18:34 - Subjective Pt reports feeling: Improved (Swelling improveing. breast feeding) Objective - Vital Signs/Intake & Output Reviewed Vital Signs: Yes Vital Signs: Vital Signs x48h Temp Pulse Resp BP Pulse Ox 05/14/19 16:15 37.1 C 84 18 132/84 H 97 05/14/19 12:00 36.8 C 95 16 128/80 99 Intake & Output: Intake & Output 05/11/19 05/12/19 05/13/19 05/14/19 23:59 23:59 23:59 23:59 Intake Total 232.767 946.667 Output Total 1150 1350 376 Balance -917.233 -403.333 -376 - Objective General Appearance: positive: No acute distress, Alert Abdomen: positive: Non-tender, No organomegaly, Mass (U) Extremities: negative: Calf tenderness, Ger's sign/cords - Lab Results Fish Bones: 05/11/19 14:20 05/11/19 14:20 Assessment/Plan - Problem List (1) Vacuum extractor delivery, delivered Impression: progressing Swelling improving
[2019-05-15] MEDS: ACETAMINOPHEN 325 MG TABLET PO PRN ×2 (01:01→07:07)
[2019-05-15] MEDS: IBUPROFEN 800 MG TABLET PO SCH ×3 (01:01→12:28)
[2019-05-15] MEDS: DOCUSATE SODIUM 100 MG CAPSULE PO SCH ×2 (01:02→11:47)
[2019-05-15 12:30] VITALS: BP 136/72
--- NOTE | 2019-05-15 12:54 | Labor Flowsheet ---
Labor Flowsheet Datetime Report Generated by CPN: 05/15/2019 12:54 Datetime: 05/13/2019 20:07 VITAL SIGNS NBP Sys/Ariadna/Mean (mmHg): 145 : 91 : 101 Pulse: 81 LaborFlag: Labor Datetime: 05/13/2019 15:58 SpO2 (%): 99 Datetime: 05/13/2019 12:30 PAIN Pain Scale: 3 Pain Presence: Constant Pain Type: Dull Pain Location: Back Datetime: 05/13/2019 11:38 Membranes Ruptured Date/Time: 05/12/2019 16:30 Station Vacuum/Forceps Applied: +2 Datetime: 05/13/2019 10:46 Anesthesia Comments: Epidural pump off Datetime: 05/13/2019 10:45 Respirations: 20 Temperature (C): 37.6 Vital Sign Comments: Dr. Cleveland at bedside and aware Datetime: 05/13/2019 10:41 I/O Interventions: Morin Cath Inserted Patient Care Comments: By Dr. Cleveland Datetime: 05/13/2019 10:11 Stage 2 Comments: vacuum Datetime: 05/13/2019 10:10 UTERINE ACTIVITY Monitor Mode: External Frequency (min): 2-7 Quality: Strong Pattern: Normal: <= 5 Contractions in 10 Minutes Resting Tone (Palpate): Relaxed Contraction Comments: Pushing ASSESSMENT A Monitor Mode: Telemetry FHR Baseline Rate : 160 Variability: Moderate 6-25 bpm Accelerations: 15X15 Decelerations: None Category: Category I Oxygen Method: Room Air Datetime: 05/13/2019 10:09 Vacuum: Off Datetime: 05/13/2019 10:04 MEDICATIONS Pitocin (milliunits): Increased to @ 5 Datetime: 05/13/2019 10:00 Duration (sec): 80-130 Datetime: 05/13/2019 09:45 Comments: Decels heard while pushing Datetime: 05/13/2019 07:20 Antiemetics/Antacids: Reglan 10 mg IV Datetime: 05/13/2019 07:19 COMMUNICATION Communication: Call/Page Placed to Provider Provider Notified (Name): Dr. Alicea Communication Comments: Floral Decorator notified that OB would like cork grinder to attend due t o particulate meconium in the amniotic fluid; provider will be in within 30 minutes Datetime: 05/13/2019 07:00 Monitor Interventions for UA: [place] Adjusted Monitor Interventions for FHR: Ultrasound Adjusted FHR Baseline Changes: No Baseline Change Datetime: 05/13/2019 06:49 Pushing Position: Pushing with Contractions Datetime: 05/13/2019 06:32 STAGE 2 Pushing: Coached on Pushing Datetime: 05/13/2019 05:48 Patient Position/Activity: Semi-Fowlers Datetime: 05/13/2019 05:37 VAGINAL EXAM Dilatation (cm): 10.0 Effacement (%): 100 Station: 1 Exam by: Hmahala Datetime: 05/13/2019 03:30 Actions for Decelerations: Side to Side; Pitocin Off; IV Bolus; Sterile Vaginal Exam Datetime: 05/13/2019 03:22 PATIENT CARE IV/Blood Work: IV Bolus Started Datetime: 05/13/2019 03:00 Pitocin Checklist: At Least 1 Acceleration of 15 bpm x 15 Seconds in 30 Minutes or Adequate Variabi lity Anesthesia Level Check: T8- Ribs Datetime: 05/13/2019 02:25 Pain Coping: Sleeping Datetime: 05/13/2019 02:05 TEACHING Instructional Method: Verbal Plan of Care: Plan of Care Discussed; Labor; Gestational Hypertension/Preeclampsia/Eclampsia Datetime: 05/13/2019 01:22 Epidural Procedure: Test Dose Datetime: 05/13/2019 01:10 PROCEDURE TIME OUT Procedure Type: 0110 ANESTHESIA Anesthesia Plans: Epidural Anesthesia Interview: E Epidural Positioning: Sitting Datetime: 05/13/2019 00:29 Cervix, Consistency: Moderate Cervix, Position: Midposition Datetime: 05/13/2019 00:00 Analgesics/Sedatives: Fentanyl (mcg) @ Datetime: 05/12/2019 22:09 Stage of : Labor Datetime: 05/12/2019 21:35 MATERNAL ASSESSMENT Level of Consciousness: Fully Conscious DTR's/Clonus: DTRs 2+; No Clonus Headache: Denies Breath Sounds, Left: Clear and Equal Breath Sounds, Right: Clear and Equal Nausea/Vomiting: Denies RUQ Epigastric Pain: Denies Datetime: 05/12/2019 18:50 Amniotic Fluid Color: Particulate Meconium Datetime: 05/12/2019 16:23 Membrane Status: Ruptured Membranes Rupture Method: Spontaneous Amniotic Fluid Amount: Moderate Amniotic Fluid Odor: Normal Nitrazine: Positive Datetime: 05/12/2019 15:01 Vaginal Bleeding: None Datetime: 05/12/2019 13:00 Pain Relief Measures: Pain Medication Given Datetime: 05/12/2019 09:41 Cervical Ripening Agents: Cytotec @ Datetime: 05/12/2019 02:16 Temperature Route: Oral Pain Assessment Comments: back feels sore but no other c/o pain at this time Datetime: 05/11/2019 19:54 Maternal Comments: occassional nausea, moderate edema non pitting to ankels and feet bilaterally
--- NOTE | 2019-06-01 08:20 | DISCHARGE SUMMARY ---
Physician: Mumtaz Cleveland MD DATE OF ADMISSION: 05/12/2019 DATE OF DISCHARGE: 05/15/2019 pls verify - date of discharge given as 05/14 jll ADMITTING DIAGNOSES 1. A 23-year-old 1, para 0 at 38.1 weeks. 3. Gestational hypertension. DISCHARGE DIAGNOSES 1. A 23-year-old 1, para 0 at 38.1 weeks. 2. Gestational hypertension. PROCEDURES 1. Misoprostol for cervical ripening. 2. Pitocin. 3. Epidural. 4. Vacuum-assisted vaginal delivery. 5. Midline episiotomy with repair. PRESENTING HISTORY: Patient is a 23-year-old primigravida who is 38.2 weeks. She received her initi al care at [facility], but transferred her care to our clinic at 23 weeks' EGA. Her SDI checks we re negative. Her blood type was noted to be O+, she is rubella immune, her 50-gram Glucola was 98. She was noted to have elevated blood pressures and noted to have a protein-creatinine ratio 0.2. For this reason, it was elected to induce her because of gestational hypertension. In the clinic, her e xam showed her to be 50%, fingertip and -3 posterior. LABORATORIES: Electrolytes on admission show a creatinine of 0.7. Her AST and ALT were both noted t o be normal. Her CBC showed a white count of 14.9, hemoglobin was 12.8, hematocrit was 38.6, platele ts were 224. Urine showed protein-creatinine ratio of 0.2. HOSPITAL COURSE: The patient was admitted and received misoprostol for cervical ripening, following which she had Pitocin initiated. She received nitrous oxide for pain control as well as an epidural. She pushed for 3 hours. At that point, because of maternal exhaustion, it was elected to do a vacu um-assisted vaginal delivery. This was reviewed with the patient and spouse prior to application. Pu lled through three contractions. During this time, there was evidence of good descent with each pull. With the last contraction, there was a tight band in the posterior vagina, which was cut with an epi siotomy. The head delivered without difficulty. Following this, the remainder of the deliver ed without any problems. There was no evidence of shoulder dystocia at this particular time. Her ep isiotomy was repaired in a standard fashion. The infant had Apgars of 8 and 9. Her course was unremarkable. She had her diet advanced. She was discharged to home with instructions to follow up in the office in one week. Her vital signs at time of discharge: Blood pressure 136/72, temperature 36.5. TD: 05/30/2019 13:14
== END 2019-05-15 12:53 | disposition home or self-care (01) | DRG 807 ==
LOC: WFO 13:54 → FBP 13:59 → WFO 14:00 → FBP 14:01 → OBSVTOIN 05-12 17:38 → FBP 05-13 22:48
PROVIDERS: ADMIT Obstetrics & Gynecology; ATTEND Obstetrics & Gynecology
PROC: 10D07Z6 Extraction of Products of Conception, Vacuum, Via Natural or Artificial Opening (ICD-10-PCS; principal; 2019-05-12)
PROC: 0W8NXZZ Division of Female Perineum, External Approach (ICD-10-PCS; 2019-05-12)
DX: O13.4 Gestational [pregnancy-induced] hypertension without significant proteinuria, complicating childbirth (principal); Z37.0 Single live birth; O64.0XX0 Obstructed labor due to incomplete rotation of fetal head, not applicable or unspecified; O65.5 Obstructed labor due to abnormality of maternal pelvic organs; O34.63 Maternal care for abnormality of vagina, third trimester; N89.5 Stricture and atresia of vagina; O77.0 Labor and delivery complicated by meconium in amniotic fluid; Z3A.38 38 weeks gestation of pregnancy
CPT/HCPCS: 80053; 82570; 84156; 85025; A9270; J2765; J7120

== ENCOUNTER 2019-12-29 18:05 | Emergency (ER) | payer OTHER ==
[2019-12-29 18:19] VITALS: BP 116/68
--- NOTE | 2019-12-29 18:56 | ED Physician Documentation ---
PD HPI URI - Stated complaint Stated Complaint: COUGH/THROAT PX - Chief complaint Chief Complaint: Heent - History obtained from History obtained from: Patient - Additional information Additional information: She has been sick for 2 days with dry cough, runny nose and sinus congestion, sore throat, and bilateral ear pain. No fevers. Review of Systems Constitutional: denies: Fever, Chills, Fatigue Ears: reports: Ear pain. denies: Loss of hearing Nose: reports: Rhinorrhea / runny nose, Congestion, Sinus pressure / pain Throat: reports: Sore throat PD PAST MEDICAL HISTORY - Past Medical History Past Medical History: No Cardiovascular: None Respiratory: None Neuro: None Endocrine/Autoimmune: None GI: None : None Musculoskeletal: None Derm: None - Past Surgical History Past Surgical History: No - Present Medications Home Medications: Ambulatory Orders Medication Instructions Recorded Confirmed Guaifenesin/Pseudoephedrne HCl 1 each PO BID PRN #20 tab.er.12h 12/29/19 [Mucinex D ER 600-60 mg Tablet] Mometasone Furoate [Nasonex] 1 spray NS BID #1 spray.pump 12/29/19 - Allergies Allergies/Adverse Reactions: Allergies Allergy/AdvReac Type Severity Reaction Status Date / Time No Known Drug Allergies Allergy Verified 12/29/19 18:19 - Social History Does the pt smoke?: No Smoking Status: Never smoker Does the pt drink ETOH?: No Does the pt have substance abuse?: No - Immunizations Immunizations are current?: Yes PD ED PE NORMAL - Vitals Vital signs reviewed: Yes - General General: Alert and oriented X 3, No acute distress - HEENT HEENT: Other (Serous otitis bilaterally with mild maxillary sinus tenderness. Oropharynx is normal, no tonsils) - Neck Neck: Supple, no meningeal sign, No bony TTP - Cardiac Cardiac: RRR, No murmur - Respiratory Respiratory: No respiratory distress, Clear bilaterally - Abdomen Abdomen: Non tender - Derm Derm: No rash - Neuro Neuro: Alert and oriented X 3, Normal speech Results - Vitals Vitals: Vital Signs - 24 hr 12/29/19 18:15 Temperature 36.4 C L Heart Rate 87 Respiratory 14 Rate Blood Pressure 116/68 O2 Saturation 99 Oxygen O2 Source Room air PD MEDICAL DECISION MAKING - ED course ED course: She has sinusitis but the short time course and lack of fevers as well as typical URI symptoms would make this most likely to be viral. Conservative care and signs and symptoms to return for were discussed. Departure - Departure Disposition: 01 Home, Self Care Clinical Impression: Acute viral sinusitis Condition: Good Record reviewed to determine appropriate education?: Yes Instructions: ED Sinusitis No Abx Prescriptions: Guaifenesin/Pseudoephedrne HCl [Mucinex D ER 600-60 mg Tablet] 1 each PO BID PRN #20 tab.er.12h PRN Reason: congestion Mometasone Furoate [Nasonex] 1 spray NS BID #1 spray.pump Comments: If not better in a week or two, or anytime if you run a fever return or see your doctor for reevaluation.
== END 2019-12-29 18:59 | disposition home or self-care (01) ==
LOC: ED 18:05
DX: J01.00 Acute maxillary sinusitis, unspecified (principal); B97.89 Other viral agents as the cause of diseases classified elsewhere; H65.93 Unspecified nonsuppurative otitis media, bilateral
CPT/HCPCS: 99282; 99283

== ENCOUNTER 2020-12-21 09:21 | Emergency (ER) | payer OTHER ==
--- NOTE | 2020-12-21 09:41 | ED Physician Documentation ---
PD HPI NVD - Stated complaint Stated Complaint: NAUSEA/VOMITING/COUGHING - Chief complaint Chief Complaint: Abd Pain - History obtained from History obtained from: Patient - History of Present Illness Timing - onset: How many weeks ago (She has had epigastric to right upper quadrant abdominal pains associated with nausea and vomiting for a month or 2. Now also having cough and congestion with nausea worse since yesterday.) Timing - duration: Months (1-2 months of intermittent upper abd pain associated with nausea, occasional vomiting.) Timing - details: Still present (increased nausea and cramping since yesterday, along with new congestion and cough symptoms the past day.), Intermittant Associated symptoms: Abdominal pain. No: Fever, Chest pain, Dizzy, Near syncope / syncope, Dysuria Contributing factors: Sick contact (her 1 1/2 year old daughter with URI symptoms of congestion and cough since yesterday as well.), Recent antibiotics (2 months ago for strep throat. No diarrhea at that time.). No: Bad food, Travel Worsened by: No: Eating Similar symptoms before: No diagnosis Review of Systems Constitutional: denies: Fever, Chills Nose: reports: Congestion (since yesterday). denies: Rhinorrhea / runny nose Cardiac: denies: Chest pain / pressure Respiratory: reports: Cough (since yesterday) GI: reports: Abdominal Pain, Nausea, Vomiting. denies: Constipation, Diarrhea (none recent - had "food poisoning" a month ago with vomiting and diarrhea for a couple days, then normal stools after.) Neurologic: denies: Near syncope Endocrine: denies: Weight loss, Weight gain PD PAST MEDICAL HISTORY - Past Medical History Cardiovascular: None Respiratory: None Neuro: None Endocrine/Autoimmune: None GI: None : None Musculoskeletal: None Derm: None - Past Surgical History Past Surgical History: No - Present Medications Home Medications: Ambulatory Orders Medication Instructions Recorded Confirmed Cetirizine [ZyrTEC] 10 mg PO DAILY #15 tablet 12/21/20 Citalopram Hydrobromide [Celexa] 40 mg ORAL DAILY 12/21/20 12/21/20 Ondansetron Odt [Zofran] 4 mg TL Q6H PRN #20 tablet 12/21/20 Pantoprazole [Protonix] 40 mg PO DAILY 30 Days #30 tablet 12/21/20 - Allergies Allergies/Adverse Reactions: Allergies Allergy/AdvReac Type Severity Reaction Status Date / Time No Known Drug Allergies Allergy Verified 12/21/20 09:25 - Social History Does the pt smoke?: No Smoking Status: Never smoker Does the pt drink ETOH?: No Does the pt have substance abuse?: No - Immunizations Immunizations are current?: Yes PD ED PE NORMAL - Vitals Vital signs reviewed: Yes - General General: Alert and oriented X 3, No acute distress, Well developed/nourished - HEENT HEENT: Pharynx benign - Neck Neck: Supple, no meningeal sign, No adenopathy - Cardiac Cardiac: RRR, No murmur - Respiratory Respiratory: Clear bilaterally - Abdomen Abdomen: Normal bowel sounds, Soft, Non distended, No organomegaly, Other (epigastric tender without guarding nor percussion tender. ) - Derm Derm: Normal color, Warm and dry - Neuro Neuro: Alert and oriented X 3, No motor deficit, Normal speech Results - Vitals Vitals: Vital Signs - 24 hr 12/21/20 12/21/20 09:26 10:57 Temperature 36.3 C L 36.9 C Heart Rate 78 71 Respiratory 18 12 Rate Blood Pressure 107/87 H 127/81 H O2 Saturation 99 97 Oxygen O2 Source Room air - Labs Labs: Laboratory Tests 12/21/20 12/21/20 12/21/20 10:47 10:47 10:47 WBC 5.5 RBC 4.08 L Hgb 13.0 Hct 39.0 MCV 95.6 MCH 31.9 H MCHC 33.3 RDW 11.7 L Plt Count 210 MPV 9.6 Neut # (Auto) 2.9 Lymph # (Auto) 2.1 [place] # (Auto) 0.4 Eos # (Auto) 0.0 Baso # (Auto) 0.0 Absolute Nucleated RBC 0.00 Nucleated RBC % 0.0 Sodium 139 Potassium 4.1 Chloride 104 Carbon Dioxide 25 Anion Gap 10.0 BUN 15 Creatinine 0.7 Estimated GFR (MDRD) 103 Glucose 99 Calcium 9.3 Total Bilirubin 0.6 AST 15 ALT 11 Alkaline Phosphatase 55 Total Protein 8.0 Albumin 5.2 Globulin 2.8 Albumin/Globulin Ratio 1.9 Lipase 26 TSH 1.35 PD MEDICAL DECISION MAKING - ED course Complexity details: reviewed results, considered differential (seems likely current URI with her daughter currently ill as well. The abd pain and nausea for month or more seems likely gastritis/ulcer. Can treat that way. Got labs to eval LFTs/Lipase as well. Suggested U/S for GB but patient not wanting to be her e that long, so deferred to outpt workup. ), d/w patient Departure - Departure Disposition: 01 Home, Self Care Clinical Impression: Abdominal pain Qualifiers: Abdominal location: epigastric Qualified Code(s): R10.13 - Epigastric pain Nausea and vomiting Qualifiers: Vomiting type: unspecified Vomiting Intractability: non-intractable Qualified Code(s): R11.2 - Nausea with vomiting, unspecified Condition: Stable Record reviewed to determine appropriate education?: Yes Instructions: ED Epigastric Pain [facility] Prescriptions: Pantoprazole [Protonix] 40 mg PO DAILY 30 Days #30 tablet Ondansetron Odt [Zofran] 4 mg TL Q6H PRN #20 tablet PRN Reason: Nausea / Vomiting Cetirizine [ZyrTEC] 10 mg PO DAILY #15 tablet Comments: For the current viral illness, you can use cetirizine antihistamine once or twice daily for the next several days to week for congestion. Tylenol if needed for fevers or pains. Given your stomach symptoms, I would avoid anti- inflammatories such as ibuprofen or naproxen at this time. See how you do over the next few days. Stay well-hydrated. For your stomach pains and nausea, considerations would be an irritation of the stomach such as gastritis or ulcer. We can treat it with pantoprazole daily for the next month. Add ondansetron if needed for nausea. Tylenol if needed for pains. I transmitted your scripts to [facility]. Other considerations would be problems with pancreas or liver and the blood tests drawn today should tell us about any of that problem. Other consideration would be gallbladder spasms or gallstones. Follow-up with your primary care for outpatient ultrasound testing for that. Your Covid test should result in a day or 2. You have a Covid test pending. You need to self quarantine until the result is done and negative. Do not leave your house. Do not get near anybody. The results should be done in 48 to 72 hours, but sometimes longer. We will call with a positive result, the fastest way to get a negative result for confirmation though is to go to the hospital website at [email or web address], click on the my [facility] tab and sign up for the patient portal. If any friends or family get sick and would like to have a Covid test done, but do not have signs or symptoms that would necessitate being hospitalized, we encourage testing through our coronavirus swabbing station, call [phone] to schedule an appointment. Discharge Date/Time: 12/21/20 11:07
[2020-12-21] MEDS ORDERED: ONDANSETRON ODT 4 MG TABLET TL STA (10:07)
[2020-12-21] MEDS ORDERED: FAMOTIDINE 20 MG TABLET PO STA (10:07)
[2020-12-21 10:52] LABS: BASOPHILS % (AUTO) 0.2 %; EOSINOPHILS % (AUTO) 0.5 %; LYMPHOCYTES # (AUTO) 2.1 10^3/uL (1.5-3.5); LYMPHOCYTES % (AUTO) 37.6 %; MEAN CORPUSCULAR HEMOGLOBIN 31.9 pg (27.0-31.0); MEAN CORPUSCULAR HGB CONC 33.3 g/dL (32.0-36.0); MEAN CORPUSCULAR VOLUME 95.6 fL (81.0-99.0); MEAN PLATELET VOLUME 9.6 fL (7.9-10.8); MONOCYTES # (AUTO) 0.4 10^3/uL (0.0-1.0); MONOCYTES % (AUTO) 7.7 %; NEUTROPHILS # (AUTO) 2.9 10^3/uL (1.5-6.6); NEUTROPHILS % (AUTO) 53.6 %; PLT - PLATELET COUNT 210 10^3/uL (130-450); RED BLOOD COUNT 4.08 10^6/uL (4.20-5.40); RED CELL DISTRIBUTION WIDTH 11.7 % (12.0-15.0); WHITE BLOOD COUNT 5.5 x10^3/uL (4.8-10.8)
[2020-12-21 10:58] VITALS: BP 127/81
[2020-12-21 11:06] LABS: ALBUMIN 5.2 g/dL (3.2-5.5); ALBUMIN/GLOBULIN RATIO 1.9 (1.0-2.2); BILIRUBIN,TOTAL 0.6 mg/dL (0.2-1.0); CALCIUM 9.3 mg/dL (8.5-10.3); CREATININE 0.7 mg/dL (0.4-1.0); POTASSIUM 4.1 mmol/L (3.5-5.0)
== END 2020-12-21 11:07 | disposition home or self-care (01) ==
LOC: ED 09:21
DX: R10.13 Epigastric pain (principal); R11.2 Nausea with vomiting, unspecified; Z20.822 Contact with and (suspected) exposure to COVID-19
CPT/HCPCS: 36415; 80053; 83690; 84443; 85025; 87635; 99283; 99284; A9270; Q0162

== ENCOUNTER 2022-08-19 16:18 | Outpatient (CLI) | payer OTHER | END 2022-08-19 23:59 | disposition critical access hospital (66) | LOC: EMS 16:18 | DX: R10.84 Generalized abdominal pain (principal); K92.0 Hematemesis; R42 Dizziness and giddiness; R53.1 Weakness | CPT/HCPCS: A0425; A0429 ==

== ENCOUNTER 2022-08-19 16:38 | Emergency (ER) | payer OTHER ==
[2022-08-19] MEDS ORDERED: PANTOPRAZOLE 40 MG VIAL IVP STA (16:55)
[2022-08-19] MEDS ORDERED: ONDANSETRON 4 MG/2 ML VIAL IVP STA (16:58)
--- NOTE | 2022-08-19 16:58 | ED Physician Documentation ---
History of Present Illness - Stated complaint Stated Complaint: ABD PAIN - Chief complaint Chief Complaint: Abd Pain - Additonal information Additional information: 26-year-old female presents emergency department for evaluation of upper abd ominal discomfort reported vomiting blood as well as melena. She states that for the last several days she has been having a lot of gastric upset. She flew to [facility] yesterday from [place]. She is visiting here for the next 10 days. She states that yesterday at the airport she vomited chunky food that she thought could have possibly been bloody though she just simply eaten some spicy chips. However this morning she vomited and found that there was a lot of bright red blood in the vomit. She also endorses some melena over the last week. Denies NSAID use rare alcohol use. Denies tobacco. She does smoke cannabis. Review of Systems Constitutional: denies: Fever, Chills Cardiac: reports: Reviewed and negative Respiratory: reports: Reviewed and negative GI: reports: Abdominal Pain, Nausea, Vomiting, Hematemesis, Bloody / black stool : reports: Reviewed and negative Skin: reports: Reviewed and negative Musculoskeletal: reports: Reviewed and negative Neurologic: reports: Reviewed and negative Psychiatric: reports: Reviewed and negative PD PAST MEDICAL HISTORY - Past Medical History Cardiovascular: None Respiratory: None Neuro: None Endocrine/Autoimmune: None GI: None : None Musculoskeletal: None Derm: None - Past Surgical History Past Surgical History: No - Present Medications Home Medications: Ambulatory Orders Medication Instructions Recorded Confirmed Cetirizine [ZyrTEC] 10 mg PO DAILY #15 tablet 12/21/20 Citalopram Hydrobromide [Celexa] 40 mg ORAL DAILY 12/21/20 12/21/20 Ondansetron Odt [Zofran] 4 mg TL Q6H PRN #20 tablet 12/21/20 Pantoprazole [Protonix] 40 mg PO DAILY 30 Days #30 tablet 12/21/20 Ondansetron Odt [Zofran] 4 mg TL Q6H PRN #10 tablet 08/19/22 Pantoprazole [Protonix] 40 mg PO DAILY #30 tablet 08/19/22 Sucralfate [Carafate] 1 gm PO QPM #300 ml 08/19/22 - Allergies Allergies/Adverse Reactions: Allergies Allergy/AdvReac Type Severity Reaction Status Date / Time No Known Drug Allergies Allergy Verified 08/19/22 16:50 - Social History Does the pt smoke?: No Smoking Status: Never smoker Does the pt drink ETOH?: No Does the pt have substance abuse?: No - Immunizations Immunizations are current?: Yes PD ED PE NORMAL - General General: Alert and oriented X 3, No acute distress - HEENT HEENT: PERRL - Neck Neck: Supple, no meningeal sign - Cardiac Cardiac: RRR, No murmur - Respiratory Respiratory: No respiratory distress, Clear bilaterally - Abdomen Abdomen: Normal bowel sounds, Soft. No: Non tender (Mild upper abdominal tenderness without guarding or rebound.) - Rectal Rectal: Other (Jacey nelson RN. Digital rectal exam revealed no blood in the vault.) Results - Vitals Vitals: Vital Signs - 24 hr 08/19/22 08/19/22 16:44 18:53 Temperature 37.1 C Heart Rate 73 68 Respiratory 18 19 Rate Blood Pressure 108/67 110/68 O2 Saturation 100 100 Oxygen O2 Source Room air - Labs Labs: Laboratory Tests 08/19/22 08/19/22 08/19/22 16:53 16:53 16:53 WBC 9.3 RBC 3.81 L Hgb 12.2 Hct 34.6 L MCV 90.8 MCH 32.0 H MCHC 35.3 RDW 11.6 L Plt Count 192 MPV 9.9 Neut # (Auto) 7.2 H Lymph # (Auto) 1.5 [place] # (Auto) 0.6 Eos # (Auto) 0.0 Baso # (Auto) 0.0 Absolute Nucleated RBC 0.00 Nucleated RBC % 0.0 Sodium 137 Potassium 3.1 L Chloride 106 Carbon Dioxide 22 Anion Gap 9.0 BUN 19 Creatinine 0.9 Estimated GFR (MDRD) 76 L Glucose 93 Calcium 9.2 Total Bilirubin 1.2 H AST 19 ALT 19 Alkaline Phosphatase 57 Total Protein 7.8 Albumin 4.8 Globulin 3.0 Albumin/Globulin Ratio 1.6 Lipase 29 Serum HCG, Qual NEGATIVE Urine Color Urine Clarity Urine pH Ur Specific [place] Urine Protein Urine Glucose (UA) Urine Ketones Urine Occult Blood Urine Nitrite Urine Bilirubin Urine Urobilinogen Ur Leukocyte Esterase Ur Microscopic Review Urine Culture Comments Urine HCG, Qual 08/19/22 17:14 WBC RBC Hgb Hct MCV MCH MCHC RDW Plt Count MPV Neut # (Auto) Lymph # (Auto) [place] # (Auto) Eos # (Auto) Baso # (Auto) Absolute Nucleated RBC Nucleated RBC % Sodium Potassium Chloride Carbon Dioxide Anion Gap BUN Creatinine Estimated GFR (MDRD) Glucose Calcium Total Bilirubin AST ALT Alkaline Phosphatase Total Protein Albumin Globulin Albumin/Globulin Ratio Lipase Serum HCG, Qual Urine Color YELLOW Urine Clarity CLEAR Urine pH 7.0 Ur Specific [place] 1.015 Urine Protein TRACE Urine Glucose (UA) NEGATIVE Urine Ketones 40 H Urine Occult Blood TRACE-INTA Urine Nitrite NEGATIVE Urine Bilirubin NEGATIVE Urine Urobilinogen 0.2 (NORMAL) Ur Leukocyte Esterase NEGATIVE Ur Microscopic Review NOT INDICATED Urine Culture Comments NOT INDICATED Urine HCG, Qual NEGATIVE - Rads (name of study) CT abd Relevant Findings:: Prelim report reviewed, Final report received (Finding is concerning for gastritis and colitis. No bowel obstruction. No CT evidence of acute appendicitis. No free fluid or free air. No abscess collection. Intrauterine device is seen in expected central endometrial location.) PD Medical Decision Making - ED course Complexity details: reviewed results, d/w patient ED course: 26-year-old female presents emergency department for evaluation of reported hematic emesis as well as melena. States that she had melena last week. She traveled to [facility] from [place] 2 days ago. In the airport she had eaten some spicy chips and vomited red. This morning she vomited and had blood- streaked fluid. On presentation to the emergency department she is alert and well-appearing. She has no tachycardia or hypotension. Her abdominal exam was rather benign though she did have some mild epigastric tenderness. There was no guarding or rebound. I did do a chaperoned digital medical exam at the bedside and there was no stool in the vault to check for melena. Subsequently labs were obtained that showed no worrisome anemia or thrombocytopenia. Electrolytes without acute worrisome findings. Subsequently CT was completed which was consistent with gastritis. While here in the emergency department the patient was given a liter of IV fluid s as well as Protonix and Zofran. She reported improvement in symptoms. As such she will be discharged with prescription for oral Protonix and Zofran. I am also recommending the use of Carafate at night. When she returns to [place] she is advised to follow closely with PCP as she would benefit from referral for endoscopy. The usual emergent return precautions worsening symptoms were discussed Departure - Departure Disposition: Home, Self Care Clinical Impression: Gastritis Qualifiers: Gastritis type: unspecified gastritis Chronicity: acute Gastritis bleeding: presence of bleeding unspecified Qualified Code(s): K29.00 - Acute gastritis without bleeding Instructions: ED Gastritis Prescriptions: Sucralfate [Carafate] 1 gm PO QPM #300 ml Pantoprazole [Protonix] 40 mg PO DAILY #30 tablet Ondansetron Odt [Zofran] 4 mg TL Q6H PRN #10 tablet PRN Reason: Nausea / Vomiting Comments: You were seen today in the emergency department because she reported that when you vomited you have had some blood in your vomit. You also stated that you had some melena or black stools last week. Your labs today did not show any worrisome findings. Your hemoglobin was normal. The CT scan however does suggest gastritis or inflammation of the stomach. This is most typically due to stress or even an infection. When you return to [place] it is critical that you discuss this ED visit with your primary care doctor as you should be referred for an endoscopy/EGD. In the short-term in order to treat your symptoms I am starting you on medication called Protonix. This is an acid reducing medication. You should take it each day in the morning. At nighttime I would like you to take the Carafate. This is a medication that will help coat the stomach and prevent further acid erosion. Do not eat or drink after taking this medication and avoid taking this medication within 2 hours of other meds. Most episodes of gastritis will begin to improve over several days or several weeks. It is important that you avoid caffeine, spicy foods, tobacco and citrus foods. If you find that your symptoms are worsening despite this treatment, you develop any fevers, have any fainting episodes or worsening symptoms and please return immediately to the ER for second evaluation.
[2022-08-19 16:59] LABS: BASOPHILS % (AUTO) 0.2 %; EOSINOPHILS % (AUTO) 0.1 %; HCT - HEMATOCRIT 34.6 % (37.0-47.0); HGB - HEMOGLOBIN 12.2 g/dL (12.0-16.0); LYMPHOCYTES # (AUTO) 1.5 10^3/uL (1.5-3.5); LYMPHOCYTES % (AUTO) 15.8 %; MEAN CORPUSCULAR HGB CONC 35.3 g/dL (32.0-36.0); MEAN CORPUSCULAR VOLUME 90.8 fL (81.0-99.0); MEAN PLATELET VOLUME 9.9 fL (7.9-10.8); MONOCYTES # (AUTO) 0.6 10^3/uL (0.0-1.0); MONOCYTES % (AUTO) 6.5 %; NEUTROPHILS # (AUTO) 7.2 10^3/uL (1.5-6.6); NEUTROPHILS % (AUTO) 77.2 %; PLT - PLATELET COUNT 192 10^3/uL (130-450); RED BLOOD COUNT 3.81 10^6/uL (4.20-5.40); RED CELL DISTRIBUTION WIDTH 11.6 % (12.0-15.0); WHITE BLOOD COUNT 9.3 x10^3/uL (4.8-10.8)
[2022-08-19 17:12] LABS: ALBUMIN 4.8 g/dL (3.2-5.5); ALBUMIN/GLOBULIN RATIO 1.6 (1.0-2.2); BILIRUBIN,TOTAL 1.2 mg/dL (0.2-1.0); CALCIUM 9.2 mg/dL (8.5-10.3); CREATININE 0.9 mg/dL (0.4-1.0); POTASSIUM 3.1 mmol/L (3.5-5.0); TOTAL PROTEIN 7.8 g/dL (6.7-8.2)
[2022-08-19 17:20] LABS: BILIRUBIN,URINE NEGATIVE (NEGATIVE); GLUCOSE, URINE (UA) NEGATIVE (NEGATIVE); KETONES,URINE (UA) 40 mg/dL (NEGATIVE); LEUKOCYTE ESTERASE, URINE NEGATIVE (NEGATIVE); NITRITE,URINE NEGATIVE (NEGATIVE); OCCULT BLOOD,URINE TRACE-INTA (NEGATIVE); PROTEIN,URINE TRACE mg/dL (NEGATIVE); UROBILINOGEN,URINE 0.2 (NORMAL) E.U./dL (NORMAL)
[2022-08-19 17:23] LABS: CLARITY,URINE CLEAR (CLEAR); HCG UR QUAL NEGATIVE
[2022-08-19 17:23] LABS: HCG,QUALITATIVE BLOOD NEGATIVE
--- NOTE | 2022-08-19 18:02 | CT Report ---
PROCEDURE: ABDOMEN/PELVIS W INDICATIONS: Reported hematic emesis and melena CONTRAST: 100ml omni 350 TECHNIQUE: After the administration of IV contrast, 5 mm thick sections acquired from the diaphragms to the symp hysis. 5 mm thick coronal and sagittal reformats were acquired. For radiation dose reduction, the f ollowing was used: automated exposure control, adjustment of mA and/or kV according to patient size. COMPARISON: Ultrasound of abdomen dated 04/01/2019 FINDINGS: Image quality: Excellent. Lung bases and heart: Unremarkable. Liver: No solid mass. Gallbladder and biliary tree: Gallbladder is within normal limits. No biliary ductal dilatation. Spleen: No splenomegaly. Pancreas: No pancreatic ductal dilation. Adrenals: No adrenal nodule. Kidneys and ureters: No hydronephrosis. No renal cystic lesion which requires follow up. No solid mas s. Bowel and peritoneum: No bowel distension. No pathologic free fluid. Questionable gastric wall thicke carol ann, which may be due to underdistention. Infectious or inflammatory gastritis cannot be excluded. T here is also suggestion of diffuse colonic wall thickening concerning for infectious inflammatory col itis. Appendix is not definitively identified. No abnormal bowel wall thickening or mesenteric fat st randing in right lower quadrant is seen. Lymph nodes: No central or retroperitoneal adenopathy. Vessels: No infrarenal aortic aneurysm. PELVIS Reproductive organs: Intrauterine device is noted in its central endometrial location.. Bladder: No abnormal wall thickening, accounting for underdistension. Pelvic lymph nodes: No pelvic adenopathy by size criteria. Bones: No aggressive osseous abnormality. Other: No significant ventral or inguinal hernia. IMPRESSION: 1. Finding is concerning for gastritis and colitis. No bowel obstruction. No CT evidence of acute derek endicitis. No free fluid of free air. No abscess collection. 2. Intrauterine device is seen in its expected central endometrial location. Reviewed by: Enrico Agarwal MD on 08/19/2022 6:00 PM PDT Approved by: Enrico Agarwal MD on 08/19/2022 6:00 PM PDT Station ID: [id number]
[2022-08-19 18:57] VITALS: BP 110/68
== END 2022-08-19 19:19 | disposition home or self-care (01) ==
LOC: EDUNIT# → ED 16:38
DX: K29.00 Acute gastritis without bleeding (principal)
CPT/HCPCS: 36415; 74177; 80053; 81003; 81025; 83690; 84703; 85025; 96374; 96375; 99283; 99284; Q9967; 81001; 87086